=== PATIENT | female | born 1995 | race Two or more races ===

== ENCOUNTER 2020-09-03 13:24 | Emergency (ER) | payer MEDICAID, OTHER ==
[~2020-09-03] VITALS: Ht 162.6 cm; Wt 65.8 kg
[~2020-09-03 13:24] MED LIST: PREN1TAB71 OR
[2020-09-03 13:50] VITALS: BP 135/81
[2020-09-03] MEDS ORDERED: ACETAMINOPHEN 500 MG TAB PO ONE (14:00)
== END 2020-09-03 14:51 | disposition home or self-care (01) ==
LOC: ER 13:24
DX: S16.1XXA Strain of muscle, fascia and tendon at neck level, initial encounter (principal); S29.019A Strain of muscle and tendon of unspecified wall of thorax, initial encounter; V43.52XA Car driver injured in collision with other type car in traffic accident, initial encounter; Y93.89 Activity, other specified; Y92.488 Other paved roadways as the place of occurrence of the external cause; Y99.8 Other external cause status
CPT/HCPCS: 71101

== ENCOUNTER 2020-11-14 15:46 | Emergency (ER) | payer MEDICAID ==
[~2020-11-14] VITALS: Ht 162.6 cm; Wt 67.1 kg
[2020-11-14 17:29] VITALS: BP 138/93
== END 2020-11-14 17:43 | disposition home or self-care (01) ==
LOC: ER 15:47
DX: S39.011A Strain of muscle, fascia and tendon of abdomen, initial encounter (principal); S40.012A Contusion of left shoulder, initial encounter; Z79.899 Other long term (current) drug therapy; V49.9XXA Car occupant (driver) (passenger) injured in unspecified traffic accident, initial encounter; Y93.89 Activity, other specified; Y92.89 Other specified places as the place of occurrence of the external cause; Y99.8 Other external cause status
CPT/HCPCS: 71250; 74176